=== PATIENT | female | born 1980 | race Caucasian/White ===

== ENCOUNTER 2016-11-16 10:47 | Observation (INO) | payer OTHER ==
[~2016-11-16 10:47] MED LIST: BUPIVACAINE/EPI 0.5% 30 ML SDV ONE; LR 1,000 ML IV ONE; PHENAZOPYRIDINE HCL 200 MG TAB PO ONE; ceFAZolin 2 GM/DEXTROSE 100 ML IV ONE
[2016-11-16] MEDS ORDERED: PHENAZOPYRIDINE HCL 200 MG TAB ONE (11:06)
[2016-11-16] MEDS ORDERED: CEFAZOLIN 2 GM/DEXTROSE/100 ML BAG IV ONE (11:06)
[2016-11-16] MEDS ORDERED: LIDOCAINE 1% 2 ML INJ ONE (11:22)
[2016-11-16] MEDS ORDERED: ALBUTEROL 3 ML DEYVIAL ONE (11:30)
[2016-11-16] MEDS ORDERED: LIDOCAINE 1% 5 ML SDV ID PRN (11:39)
[2016-11-16] MEDS ORDERED: LR 1,000 ML IV ONE (11:39)
[2016-11-16] MEDS ORDERED: ALBUTEROL 3 ML DEYVIAL IH ONE (12:00)
[2016-11-16] MEDS ORDERED: fentaNYL 100 MCG/2 ML INJ ONE ×5 (12:15→15:52)
[2016-11-16] MEDS ORDERED: PROPOFOL 200 MG/20 ML VIAL ONE (12:15)
[2016-11-16] MEDS ORDERED: ROCURONIUM 50 MG/5 ML VIAL ONE ×2 (12:17→14:27)
[2016-11-16] MEDS ORDERED: LIDOCAINE 2% 100 MG/5 ML SYR ONE (12:17)
[2016-11-16] MEDS ORDERED: MIDAZOLAM 2 MG/2 ML VIAL ONE (12:27)
[2016-11-16] MEDS ORDERED: DEXAMETHASONE 4 MG/ML VIAL ONE (13:12)
[2016-11-16] MEDS ORDERED: ONDANSETRON 4 MG/2 ML VIAL ONE (13:12)
[2016-11-16] MEDS ORDERED: HYDROmorphONE/DILAUDID 2 MG/ML INJ ONE (13:27)
[2016-11-16] MEDS ORDERED: HYDROmorphONE/DILAUDID 1 MG/ML SYR ONE ×2 (15:14→15:52)
[2016-11-16] MEDS ORDERED: HYDROCODONE/APAP 5/325 TAB ONE ×2 (16:37)
[2016-11-16] MEDS ORDERED: DIAZEPAM 10 MG/2 ML SYR ONE (17:23)
[2016-11-16] MEDS ORDERED: DIAZEPAM 10 MG/2 ML SYR IVP ONE (17:30)
[2016-11-16] MEDS: HYDROCODONE/APAP 5/325 TAB PO PRN (20:13)
[2016-11-16] MEDS ORDERED: HYDROmorphONE/DILAUDID 1 MG/ML SYR IVP PRN (21:42)
[2016-11-16] MEDS ORDERED: ONDANSETRON 4 MG/2 ML VIAL IVP PRN (21:42)
[2016-11-16] MEDS ORDERED: ZOLPIDEM TARTRATE 5 MG TAB PO PRN (21:42)
[2016-11-16] MEDS ORDERED: LR 1,000 ML IV SCH (22:00)
[2016-11-16] MEDS: KETOROLAC 30 MG/1 ML SDV IVP SCH (22:09)
[2016-11-17] MEDS: HYDROCODONE/APAP 5/325 TAB PO PRN ×2 (02:12→09:39)
[2016-11-17] MEDS: KETOROLAC 30 MG/1 ML SDV IVP SCH ×2 (04:38→10:18)
[2016-11-17 05:01] LABS: HEMATOCRIT 35.9 % (38.0-47.0); HEMOGLOBIN 12.4 g/dL (12.6-16.3)
[2016-11-17 05:46] VITALS: O2SAT 96
[2016-11-17 09:49] VITALS: BP 97/60; PULSE 73; RESP 16; TEMP 98
--- NOTE | 2016-11-17 12:17 | GOP ---
[f rep st] OPERATIVE REPORT DATE OF OPERATION: 11/16/2016 SURGEON: Tanvir Dick MD [employer]KEHOU[employer] OPERATOR: Shanique Garces CFA ANESTHESIA: General. PREOPERATIVE DIAGNOSIS: 1. Pelvic pain. 2. Dysmenorrhea. 3. Dyschezia. 4. Probable right ovarian endometrioma. 5. Endometriosis. POSTOPERATIVE DIAGNOSIS: 1. Pelvic pain. 2. Dysmenorrhea. 3. Dyschezia. 4. Probable right ovarian endometrioma. 5. Endometriosis. 6. Severe pelvic adhesions. PROCEDURE PERFORMED: Robotic enterolysis and lysis of adhesions. FINDINGS: The patient had severe adhesions in the abdomen and pelvis. The omentum and the proximal sigmoid colon were adherent to the lower anterior abdominal wall. The rectum was adherent to the l eft adnexa and posterior uterus. Both the anterior and posterior cul-de-sacs were completely oblite rated. There was a fibrotic nodule at the junction of the bladder, uterus, and rectum. Very little normal anatomy was seen. Given the severe adhesions, I was unable to adequately identify the plane s between the rectum, bladder, uterus, and adnexa. I felt that as I continued I may need to convert to laparotomy. However, I had not had an adequate discussion with the patient about the possible n eed for removal of any gynecologic structures. I spoke to the , and we agreed that I should terminate the procedure, and have a more lengthy discussion about possible outcomes before proceedin g further with the surgery. SPECIMENS: None. ESTIMATED BLOOD LOSS: 25 mL. INDICATIONS: The patient is a 36-year-old female with a known history of endometriosis, undergoing a prior laparoscopy which was converted to a laparotomy. Apparently a cyst was drained at that surg rainer, and some lysis of adhesions was performed. No excision of endometriosis was performed. Patien t had recurrent pelvic pain as well as a right ovarian endometrioma. DESCRIPTION OF PROCEDURE: The patient was taken to the operating room where she was identified. Ge neral anesthesia was administered and found to be adequate. She was placed in the lithotomy positio n and prepared and draped in normal sterile fashion. A Hulka tenaculum was placed in the uterus for manipulation. A Craig catheter was then placed. A 1 cm infraumbilical incision was made with the scalpel. The Veress needle with the CO2 gas flowin g was advanced into the peritoneal cavity. The abdomen was then insufflated with carbon dioxide gas . The 12 mm trocar, followed by the laparoscope, were then inserted. Two lateral ports were placed on the right and 1 on the left under direct visualization. She then was placed in Trendelenburg po sition, and the da Hardik robot docked on the left side. The instruments were then brought into the abdominal cavity under direct visualization. The patient had omentum and proximal sigmoid colon adh erent to the lower anterior abdominal wall. Careful and delicate dissection was required to eventua lly free these adhesions so the pelvis could be visualized. However, the pelvis had extensive adhes ions with complete obliteration of her anterior and posterior cul-de-sacs. The uterus was not able to be visualized due to the adhesions. I first started laterally to free up the some of the adhesio ns to try to restore some normal anatomy. I was able to dissect out both fallopian tubes. The rect um was densely adherent to both the lateral aspect of the uterus, the left adnexa, as well as the bl adder, which was pulled down adherent over the fundus. Most of her lesions were vascular. With the small amount of bleeding, the correct surgical planes were difficult to visualize. There was a diamond y firm, fibrotic nodule at the junction between the bladder, uterus, and sigmoid. I felt there was higher probably requiring a laparotomy as well as possible removal of some of her gynecologic organs . I spoke to the , and we both agreed to terminate the procedure there, and have a more christa thy discussion with the patient about whether or not she would benefit from removal of any gynecolog ic structures to reduce her pain. The procedure was then concluded. The robot was then undocked. The fascia was closed with 0 Vicryl, the skin with 4-0 Monocryl and surgical adhesive. Anesthesia w as reversed, and the patient taken to PACU awake, in stable condition. COMPLICATIONS: None. DISPOSITION: Patient stable to PACU. /[id number]/[id number]
== END 2016-11-17 12:35 | disposition home or self-care (01) ==
LOC: FSGY 10:47 → F3E 17:29 → FOB 19:11
PROVIDERS: ADMIT Obstetrics & Gynecology; ATTEND Obstetrics & Gynecology
PROC: 0DNN4ZZ Release Sigmoid Colon, Percutaneous Endoscopic Approach (ICD-10-PCS; principal; 2016-11-16 12:45)
PROC: 0DNP4ZZ Release Rectum, Percutaneous Endoscopic Approach (ICD-10-PCS; principal; 2016-11-16 12:45)
PROC: 8E0WXCZ Robotic Assisted Procedure of Trunk Region (ICD-10-PCS; principal; 2016-11-16 12:45)
PROC: 0UN74ZZ Release Bilateral Fallopian Tubes, Percutaneous Endoscopic Approach (ICD-10-PCS; principal; 2016-11-16 12:45)
DX: R10.2 Pelvic and perineal pain (principal); N94.6 Dysmenorrhea, unspecified; N80.3 Endometriosis of pelvic peritoneum; N80.8 Other endometriosis; N94.10 Unspecified dyspareunia; K59.00 Constipation, unspecified; J45.909 Unspecified asthma, uncomplicated; K21.9 Gastro-esophageal reflux disease without esophagitis
CPT/HCPCS: 58660; G0378; J0690; J1100; J1170; J1885; J2001; J2250; J2405; J2704; J3010